=== PATIENT | male | born 1965 | race Caucasian/White ===

== ENCOUNTER 2020-09-12 19:05 | Observation (INO) ==
[2020-09-12] MEDS ORDERED: Ondansetron 4 MG/2 ML VIAL IVP PRN (21:44)
[2020-09-12] MEDS ORDERED: Naloxone 0.4 MG/ML INJ IVP PRN (21:44)
[2020-09-12] MEDS ORDERED: Nitroglycerin 0.4 MG TAB.SUBL SL PRN (21:46)
[2020-09-12] MEDS ORDERED: D5% in Water 1,000 ML IVC PRN (22:11)
[2020-09-12] MEDS ORDERED: *HR* Dextrose 50 % in Water (Vial) 50 ML VIAL IVP PRN (22:11)
[2020-09-12] MEDS ORDERED: Dextrose Gel 15 GM/37.5 ML TUBE PO PRN ×2 (22:11)
[2020-09-12] MEDS ORDERED: Morphine Sulfate 2 MG/ML SYRINGE IVP PRN (22:32)
[2020-09-12] MEDS: Pantoprazole 40 MG VIAL IVP SCH (22:57)
[2020-09-12] MEDS: Gabapentin 400 MG CAPSULE PO SCH (22:58)
[2020-09-13] MEDS: 0.9 % Sodium Chloride 1,000 ML IVC SCH ×3 (00:38→21:27)
[2020-09-13 01:25] LABS: BUN/Creatinine Ratio 12 (6-26); Blood Urea Nitrogen 16 mg/dL (6-20); Calcium 9.3 mg/dL (8.6-10.3); Carbon Dioxide 26 mEq/L (23-29); Chloride 97 mEq/L (98-107); Chol/HDL Ratio 7.2 (0-4.9); Cholesterol 237 mg/dL (< 200); Glucose 211 mg/dL (70-105); HDL Cholesterol 33 mg/dL (40-59); LDL Cholesterol,Calculated 146 mg/dL (< 100); Osmolality,Calculated 283 (280-300); Potassium 3.9 mEq/L (3.5-5.1); Sodium 133 mEq/L (136-145); Triglycerides 291 mg/dL (< 150); eGFR For African Americans > 60 (> 60); eGFR For Non-African Americans 54 (> 60)
[2020-09-13 02:01] LABS: Hematocrit 42.3 % (37.5-50.1); Hemoglobin 13.3 g/dL (12.9-16.9); Mean Corpuscular HGB Conc 31.4 g/dL (31.6-35.5); Mean Corpuscular Hemoglobin 27.8 pg (28.0-33.3); Mean Corpuscular Volume 88.3 fL (83.0-100.0); Mean Platelet Volume 10.7 fL (9.4-12.4); Platelet Count 307 K/mcL (140-400); Red Blood Count 4.79 M/mcL (4.19-5.50); Red Cell Distribution Width 12.7 % (11.5-14.5); White Blood Count 7.4 K/mcL (4.3-11.1)
[2020-09-13] MEDS ORDERED: Insulin LISPRO 300 UNITS/3 ML VIAL SQ SCH (07:30)
[2020-09-13] MEDS: Pantoprazole 40 MG VIAL IVP SCH (08:26)
[2020-09-13] MEDS: Gabapentin 400 MG CAPSULE PO SCH ×2 (08:26→21:28)
[2020-09-13] MEDS ORDERED: lisinopriL 10 MG TABLET PO SCH (09:00)
[2020-09-13] MEDS ORDERED: hydroCHLOROthiazide 25 MG TABLET PO SCH (09:00)
[2020-09-13] MEDS ORDERED: Perflutren Lipid Microsphere 1.3 ML in 0.9 % Sodium Chloride 8.7 ML IVP PRN (09:12)
[2020-09-13] MEDS ORDERED: *HR* Heparin 5,000 UNIT/ML VIAL IVP PRN ×2 (09:14)
[2020-09-13] MEDS ORDERED: *HR* Heparin 5,000 UNIT/ML VIAL IVP ONE (09:14)
[2020-09-13] MEDS ORDERED: Heparin 25,000UNIT/250ML 1/2NS 25,000 UNIT/250 ML IV.SOLN IVC SCH (09:15)
[2020-09-13] MEDS ORDERED: *HR* Dextrose 50 % in Water (Vial) 50 ML VIAL IVP PRN (10:53)
[2020-09-13] MEDS ORDERED: Dextrose Gel 15 GM/37.5 ML TUBE PO PRN ×2 (10:53)
[2020-09-13] MEDS ORDERED: D5% in Water 1,000 ML IVC PRN (10:53)
[2020-09-13 11:23] LABS: Estimated Average Glucose 194 mg/dl
[2020-09-13] MEDS: Aspirin Enteric Coated 81 MG Tablet PO SCH (11:40)
[2020-09-13] MEDS: Ipratropium/Albuterol Neb 3 ML IH SCH ×4 (12:00→19:54)
[2020-09-13] MEDS: Insulin LISPRO 300 UNITS/3 ML VIAL SQ SCH ×3 (13:02→21:18)
[2020-09-13] MEDS ORDERED: *HR* Midazolam HCl 2 MG/2 ML VIAL ONE (13:31)
[2020-09-13] MEDS ORDERED: *HR* Heparin 10,000 UNIT/10 ML VIAL ONE (13:32)
[2020-09-13] MEDS ORDERED: 0.9 % Sodium Chloride 2,000 ML ONE (13:32)
[2020-09-13] MEDS ORDERED: ISOVUE-370 200 ML INFUS..BTL ONE (13:32)
[2020-09-13] MEDS ORDERED: Heparin 1,000 UNITS/500 mL 500 ML ONE (13:32)
[2020-09-13] MEDS ORDERED: *HR* FentaNYL (PF) 100 MCG/2 ML VIAL ONE (13:32)
[2020-09-13] MEDS ORDERED: Nitroglycerin 1,000 MCG/10 ML VIAL IV ONE (13:33)
[2020-09-13] MEDS: *HR* Heparin 5,000 UNIT/ML VIAL SQ SCH (21:18)
[2020-09-14] MEDS: Ipratropium/Albuterol Neb 3 ML IH SCH ×3 (00:35→07:36)
[2020-09-14] MEDS: Insulin LISPRO 300 UNITS/3 ML VIAL SQ SCH ×3 (05:09→12:41)
[2020-09-14] MEDS: *HR* Heparin 5,000 UNIT/ML VIAL SQ SCH (05:15)
[2020-09-14 05:42] LABS: BUN/Creatinine Ratio 13 (6-26); Blood Urea Nitrogen 16 mg/dL (6-20); Calcium 8.9 mg/dL (8.6-10.3); Carbon Dioxide 29 mEq/L (23-29); Chloride 101 mEq/L (98-107); Glucose 188 mg/dL (70-105); Magnesium 1.9 mg/dL (1.6-2.6); Osmolality,Calculated 288 (280-300); Phosphorous 2.6 mg/dL (2.7-4.5); Potassium 4.1 mEq/L (3.5-5.1); Sodium 136 mEq/L (136-145); eGFR For African Americans > 60 (> 60); eGFR For Non-African Americans > 60 (> 60)
[2020-09-14] MEDS: 0.9 % Sodium Chloride 1,000 ML IVC SCH ×3 (06:54→09:01)
[2020-09-14] MEDS: Aspirin Enteric Coated 81 MG Tablet PO SCH (09:00)
[2020-09-14] MEDS: Pantoprazole 40 MG VIAL IVP SCH (09:00)
[2020-09-14] MEDS ORDERED: lisinopriL 10 MG TABLET PO SCH (09:00)
[2020-09-14] MEDS: Gabapentin 400 MG CAPSULE PO SCH (09:00)
[2020-09-14] MEDS ORDERED: hydroCHLOROthiazide 25 MG TABLET PO SCH (09:00)
[2020-09-14] MEDS ORDERED: Ipratropium/Albuterol Neb 3 ML IH PRN (11:04)
[2020-09-14 12:17] VITALS: BP 131/75
== END 2020-09-14 13:15 | disposition home or self-care (01) ==
LOC: 3BNU → SUATTDRO 19:06 → 3BNU 19:14
PROVIDERS: ADMIT Internal Medicine; ATTEND Internal Medicine

== ENCOUNTER 2022-01-29 11:59 | Observation (INO) ==
[2022-01-29] MEDS ORDERED: Dextrose 4 GM Chewable Tablets PO PRN ×2 (14:23)
[2022-01-29] MEDS ORDERED: D5% in Water 1,000 ML IVC PRN (14:23)
[2022-01-29] MEDS ORDERED: *HR* Dextrose 50 % in Water (Syg) 50 ML SYRINGE IVP PRN (14:23)
[2022-01-29] MEDS ORDERED: Melatonin 3 MG TABLET PO PRN (14:24)
[2022-01-29] MEDS ORDERED: Acetaminophen 325 MG TABLET PO PRN (14:24)
[2022-01-29] MEDS ORDERED: Ondansetron 4 MG/2 ML VIAL IVP PRN (14:24)
[2022-01-29] MEDS ORDERED: Naloxone 0.4 MG/ML INJ IVP PRN (14:24)
[2022-01-29] MEDS ORDERED: Nitroglycerin 0.4 MG TAB.SUBL SL PRN (14:27)
[2022-01-29] MEDS ORDERED: Morphine Sulfate 2 MG/ML SYRINGE IVP PRN (14:27)
[2022-01-29] MEDS: 0.9 % Sodium Chloride 1,000 ML IVC SCH ×2 (14:48→23:32)
[2022-01-29] MEDS ORDERED: Perflutren Lipid Microsphere 1.3 ML in 0.9 % Sodium Chloride 8.7 ML IVP PRN (15:41)
[2022-01-29] MEDS: *HR* Heparin 5,000 UNIT/ML VIAL SQ SCH (17:05)
[2022-01-29] MEDS: Insulin LISPRO 300 UNITS/3 ML VIAL SUBQ SCH (17:06)
[2022-01-29] MEDS ORDERED: Insulin LISPRO 300 UNITS/3 ML VIAL SUBQ SCH (21:00)
[2022-01-29] MEDS: Pregabalin 50 MG CAPSULE PO SCH (21:34)
[2022-01-30 03:12] VITALS: O2SAT 96
[2022-01-30 03:20] LABS: Basophils % 0.6 %; Eosinophils # 0.2 K/mcL (0.0-0.6); Eosinophils % 2.3 %; Hematocrit 39.8 % (37.5-50.1); Immature Granulocytes % 0.3 % (0-4); Lymphocytes # 2.6 K/mcL (0.6-4.6); Mean Corpuscular HGB Conc 32.7 g/dL (31.6-35.5); Mean Corpuscular Hemoglobin 28.6 pg (28.0-33.3); Mean Corpuscular Volume 87.7 fL (83.0-100.0); Monocytes # 0.5 K/mcL (0.0-1.3); Monocytes % 6.7 %; Neutrophils # 3.6 K/mcL (1.6-8.9); Platelet Count 233 K/mcL (140-400); Red Blood Count 4.54 M/mcL (4.19-5.50); Red Cell Distribution Width 12.5 % (11.5-14.5); Segmented Neutrophils % 52.1 %; White Blood Count 6.8 K/mcL (4.3-11.1)
[2022-01-30 03:45] LABS: Estimated Average Glucose 192 mg/dl; Hemoglobin A1C 8.3 %
[2022-01-30] MEDS: *HR* Heparin 5,000 UNIT/ML VIAL SQ SCH (05:42)
[2022-01-30] MEDS ORDERED: Regadenoson 0.4 MG/5 ML SYRINGE IVP ONE (06:20)
[2022-01-30] MEDS: Insulin LISPRO 300 UNITS/3 ML VIAL SUBQ SCH ×2 (06:50→11:55)
[2022-01-30] MEDS ORDERED: hydroCHLOROthiazide 25 MG TABLET PO SCH (09:00)
[2022-01-30] MEDS ORDERED: Aspirin 81 MG TAB.CHEW PO SCH (09:00)
[2022-01-30] MEDS: Pregabalin 50 MG CAPSULE PO SCH (09:01)
[2022-01-30 11:37] VITALS: BP 121/72; PULSE 72; TEMP 97.6
== END 2022-01-30 13:34 | disposition home or self-care (01) ==
LOC: 3ANU → SUATTDRO 14:15
PROVIDERS: ADMIT Internal Medicine; ATTEND Nurse Practitioner